=== PATIENT | female | born 1990 | race Caucasian/White ===

== ENCOUNTER 2020-07-08 13:58 | Emergency (ER) | payer OTHER ==
[~2020-07-08] VITALS: Ht 162.6 cm; Wt 72.6 kg
[2020-07-08 14:30] VITALS: BP 92/52
== END 2020-07-08 17:22 | disposition home or self-care (01) ==
LOC: EDBD 13:58 → ER 13:58
DX: J20.9 Acute bronchitis, unspecified (principal); J45.909 Unspecified asthma, uncomplicated
CPT/HCPCS: 71045